=== PATIENT | male | born 1935 ===

== ENCOUNTER 2016-11-20 07:26 | Day surgery (SDC) | payer OTHER ==
[2016-11-20 06:26] VITALS: BMI 36.0
[2016-11-20] MEDS ORDERED: Lidocaine 2% Inj (20ml) ONE (08:52)
[2016-11-20] MEDS ORDERED: Phenylephrine 10 mg/ml Inj ONE (08:52)
[2016-11-20] MEDS ORDERED: Iohexol 350mgl/ml 50 ML ONE (08:53)
[2016-11-20] MEDS ORDERED: Midazolam 2 MG/2 ML VIAL ONE (08:53)
[2016-11-20] MEDS ORDERED: Iodixanol 320 MG/ML 100 ML BOTTLE IV ONE (08:53)
[2016-11-20] MEDS ORDERED: Nitroglycerin 50mg in D5W 50 MG/250 ML BOTTLE IV ONE (08:53)
[2016-11-20] MEDS ORDERED: Iodixanol 320 MG/ML 200 ML BOTTLE IV ONE (08:53)
[2016-11-20] MEDS ORDERED: Eptifibatide 20 mg/10mL Inj IVP ONE (09:28)
[2016-11-20] MEDS ORDERED: Sodium Chloride 0.45% 1,000 ML IV SCH (10:15)
[2016-11-20 11:06] VITALS: O2SAT 96
[2016-11-20] MEDS ORDERED: Bacitracin 500 Units/gm Oint Foilpak UD ONE (13:18)
[2016-11-20 14:17] VITALS: RESP 16
--- NOTE | 2016-11-20 14:35 | CP.PCM.PN ---
Subjective - Date & Time of Evaluation Date of Evaluation: 11/20/16 Time of Evaluation: 14:36 - Subjective Subjective: s/p Coronary Angiogram and IVUS of RCA and LAD Objective - Vital Signs/Intake and Output Vital Signs (last 24 hours): Temp Pulse Resp BP Pulse Ox 97.3 F L 65 16 126/83 96 11/20/16 10:25 11/20/16 14:10 11/20/16 14:10 11/20/16 14:10 11/20/16 10:25 - Medications Medications: Current Medications Acetaminophen (Tylenol 325mg Tab) 325 mg PO Q6H PRN PRN Reason: Pain, Mild (1-3) Amlodipine Besylate (Norvasc) 5 mg PO DAILY [facility] Atorvastatin Calcium (Lipitor) 80 mg PO HS [facility] Sodium Chloride (Sodium Chloride 0.45%) 1,000 mls @ 80 mls/hr IV .[id number] [facility] Last Admin: 11/20/16 10:44 Dose: 80 mls/hr Losartan Potassium (Cozaar) 25 mg PO DAILY [facility] Ondansetron HCl (Zofran Inj) 4 mg IVP ONCE PRN PRN Reason: Nausea/Vomiting - Constitutional Appears: Well Assessment and Plan (1) S/P coronary angiogram Assessment & Plan: 42 last 81-year-old male transferred from [facility] for evaluation of right coronary artery and left anterior descending artery atherosclerotic calcified lesion. He underwent coronary angiogram by a rate right radial artery right coronary arterial system showed proximal moderate stenosis with luminal diameter narrowing of 65% and minimal luminal area of 3.5 mm. The left coronary system was used engaging the EBU XB 3 5 guiding catheter over a 018 pro-water wire Cheesh-Na I AQUILINO catheter was advanced. The intravascular ultrasound of the L left anterior descending artery showed minimal luminal area of 2.3 mm with 75-80% luminal stenosis and 360 calcified lesion. Because of the need for atherectomy it was decided to stage the patient at a facility where we can proceed with coronary atherectomy. Patient will be transferred back to [facility] later today and will be scheduled for outpatient for coronary atherectomy angioplasty with stand by Impella support next week at [facility]. Status: Acute
[2016-11-20 15:38] VITALS: TEMP 97.2
[2016-11-20 16:23] VITALS: BP 125/70; PULSE 62
--- NOTE | 2016-11-21 16:01 | CARD ---
APPROVED REPORT Procedure(s) performed: Coronary Arteriogram IVUS of LAD and RCA HISTORY The patient is a 81 year-old male with a history of : most recent EF: 65%. (EF Method: Echocardiogram), previous diagnostic cath, tobacco history() : The patient is a former smoker , hypertension , dyslipidemia . INDICATION The indication(s) include : palpitations, arrhythmia, dyspnea. CASE TECHNIQUE The patient was brought urgently to the Cardiac Catheterization Laboratory in a fasting state and was prepped and draped in a sterile manner. The right wrist was infiltrated with 2% Lidocaine subcutaneous anesthesia. A 6 Fr Prelude Transradial sheath was performed using coronary diagnostic catheters. The left coronary system was accessed and visualized with a 6 Fr XB 3.5 catheter. The right coronary system was accessed and visualized with a 6 Fr JR 4 catheter. Closure device was deployed with a Fr TR Band (Regular) without any complications. The patient tolerated the procedure well and there were no complications associated with the procedure. Vessel Analysis The patient's coronary anatomy is right dominant. The left main coronary artery is a large size vessel with intimal irregularities. The left main bifurcates to the left anterior descending and circumflex. The left anterior descending artery is a large size vessel with stenosis. There is a 65% stenosis in the proximal segment. The right coronary artery is a large size vessel with stenosis. There is a 50% stenosis in the proximal segment. IVUS Anticoagulation was achieved with Heparin. Intravascular Ultrasound was performed on the proximal right coronary artery,proximal left anterior descending artery segment vessel. A 6 Fr JR 4 Guide Catheter was used to engage the ostium. A 0.014 x 180 cm [employer] Interventional Guidewire was used. A IVUS catheter was used. FINDINGS IVUS of RCA - 65% proximal RCA stenosis with MLA of 3.5 mm 2 IVUS of LAD - 70% proximal LAD stenosis with MLA of 2.8 mm2 , severely calcified with 360' calcification Conclusion - Moderate RCA stenosis - Severely calcified proximal LAD stenosis Recommendations - Staged PCI of proximal LAD with atherectomy and standby impella support
== END 2016-11-20 16:59 | disposition short-term general hospital (02) ==
LOC: CATH 07:26 → 2RSO 10:14 → CATH 16:59
PROVIDERS: ATTEND Internal Medicine Interventional Cardiology
DX: I25.10 Atherosclerotic heart disease of native coronary artery without angina pectoris (principal); I10 Essential (primary) hypertension; E78.5 Hyperlipidemia, unspecified; Z87.891 Personal history of nicotine dependence
CPT/HCPCS: 85175; 93454; 99152; 99153; C1753; C1769 ×2; C1887 ×2; C1894; J1644 ×2; J2250; J2370; J2405; J3010; J7030; J7040; Q9967 ×2